=== PATIENT | female | born 1980 | race African-American/Black ===

== ENCOUNTER 2019-03-13 02:33 | Emergency (ER) | payer MEDICAID ==
[~2019-03-13] VITALS: Ht 175.3 cm; Wt 126.6 kg
[2019-03-13 03:58] VITALS: BP 133/80
[2019-03-13] MEDS ORDERED: DexAMETHasone SOD PHOS 10MG/1ML VIAL INJ IM ONE (04:00)
[2019-03-13] MEDS ORDERED: HYDROcodone-ACET 5/325MG TAB PO ONE (04:30)
== END 2019-03-13 04:37 | disposition home or self-care (01) ==
LOC: ER 02:35
DX: B88.9 Infestation, unspecified (principal); F17.210 Nicotine dependence, cigarettes, uncomplicated
CPT/HCPCS: 96372; 99283; J1100

== ENCOUNTER 2021-12-10 13:51 | Emergency (ER) | payer MEDICAID ==
[~2021-12-10] VITALS: Ht 175.3 cm; Wt 131.5 kg
[2021-12-10 15:04] VITALS: BP 95/60
[2021-12-10 15:45] LABS: Urine Bacteria FEW /hpf (None Seen); Urine Blood Negative /uL (Negative); Urine Specific Gravity 1.021 (1.001-1.035); Urine WBC 2 /hpf (0 - 5)
[2021-12-10 15:47] LABS: Basophils # (auto) 0 10 ^3/uL (0-0.2); Basophils % (auto) 0.4 % (0.0-2.0); Eosinophils # (auto) 0.2 10 ^3/uL (0-0.8); Hemoglobin 12.2 g/dL (12.2-16.2); Monocytes # (auto) 0.4 10 ^3/uL (0-1.3); Nucleated Red Blood Cells % 0.1 %
[2021-12-10 15:49] LABS: Eosinophils % (auto) 2.4 % (0.0-7.0); Hematocrit 36.2 % (36.0-46.0); Lymphocytes # (auto) 1.3 10 ^3/uL (0.4-5.4); Lymphocytes % (auto) 14.2 % (10.0-50.0); Mean Corpuscular Hgb Conc. 33.6 g/dL (32.0-36.0); Mean Corpuscular Volume 80.2 fL (80.0-100.0); Monocytes % (auto) 4.8 % (0.0-12.0); Neutrophils # (auto) 7.3 10 ^3/uL (1.6-8.6); Neutrophils % (auto) 78.2 % (37.0-80.0); Red Blood Cells 4.52 10^6/uL (4.0-5.20); White Blood Cell 9.3 10^3/uL (4.4-10.8)
[2021-12-10 15:56] LABS: BUN/Creatinine Ratio 11.3; Calcium 8.9 mg/dL (8.5-10.1); Potassium 3.7 mmol/L (3.5-5.1)
[2021-12-10] MEDS ORDERED: MECLIZINE HCL 25 MG TAB PO ONE (16:30)
[2021-12-10] MEDS ORDERED: CIPRSUS OT (16:31)
[2021-12-10] MEDS ORDERED: MECL1TAB42 PO (16:31)
== END 2021-12-10 16:36 | disposition home or self-care (01) ==
LOC: ER 13:51
DX: R42 Dizziness and giddiness (principal); H60.92 Unspecified otitis externa, left ear; F17.210 Nicotine dependence, cigarettes, uncomplicated; W22.8XXA Striking against or struck by other objects, initial encounter; Y93.01 Activity, walking, marching and hiking; Y92.89 Other specified places as the place of occurrence of the external cause; Y99.8 Other external cause status
CPT/HCPCS: 36415; 70450; 80048; 81001; 84484; 85025; 93005; 99285; J8597

== ENCOUNTER 2021-12-13 17:05 | Emergency (ER) | payer MEDICAID ==
[~2021-12-13] VITALS: Ht 175.3 cm; Wt 131.5 kg
[~2021-12-13 17:05] MED LIST: CIPRSUS OT; MECL1TAB42 PO
[2021-12-13 19:01] LABS: Albumin 3.7 g/dL (3.4-5.0); Calcium 9.1 mg/dL (8.5-10.1); Potassium 3.9 mmol/L (3.5-5.1)
[2021-12-13 19:04] LABS: BUN/Creatinine Ratio 6.5; Bilirubin, Total 0.3 mg/dL (0.2-1.0); Total Protein 7.9 g/dL (6.4-8.2)
[2021-12-13 19:04] LABS: Urine Bacteria FEW /hpf (None Seen); Urine Blood Negative /uL (Negative); Urine Specific Gravity 1.008 (1.001-1.035); Urine WBC 3 /hpf (0 - 5)
[2021-12-13 19:09] LABS: Basophils # (auto) 0 10 ^3/uL (0-0.2); Basophils % (auto) 0.4 % (0.0-2.0); Lymphocytes # (auto) 1.6 10 ^3/uL (0.4-5.4)
[2021-12-13 19:11] LABS: Eosinophils # (auto) 0.2 10 ^3/uL (0-0.8); Eosinophils % (auto) 1.9 % (0.0-7.0); Hematocrit 37.6 % (36.0-46.0); Hemoglobin 12.8 g/dL (12.2-16.2); Mean Corpuscular Hemoglobin 27.2 pg (28.0-32.0); Mean Corpuscular Hgb Conc. 33.9 g/dL (32.0-36.0); Mean Corpuscular Volume 80.1 fL (80.0-100.0); Monocytes # (auto) 0.5 10 ^3/uL (0-1.3); Monocytes % (auto) 4.6 % (0.0-12.0); Neutrophils # (auto) 7.8 10 ^3/uL (1.6-8.6); Neutrophils % (auto) 77.1 % (37.0-80.0); Red Blood Cells 4.69 10^6/uL (4.0-5.20); Red Cell Distribution Width 15.3 % (11.8-14.3); White Blood Cell 10.1 10^3/uL (4.4-10.8)
[2021-12-13] MEDS ORDERED: diazePAM 5 MG TAB PO ONE (20:00)
[2021-12-14] MEDS ORDERED: diazePAM 5 MG TAB PO ONE
[2021-12-14 02:00] VITALS: BP 129/93
[2021-12-14] MEDS ORDERED: DIAZ5TAB PO (02:57)
== END 2021-12-14 03:00 | disposition home or self-care (01) ==
LOC: ER 17:05
DX: R42 Dizziness and giddiness (principal); F17.210 Nicotine dependence, cigarettes, uncomplicated
CPT/HCPCS: 36415; 70450; 80053; 81001; 81025; 84484; 85025; 93005

== ENCOUNTER 2025-04-21 10:03 | Emergency (ER) | payer MEDICAID ==
[~2025-04-21] VITALS: Ht 177.8 cm; Wt 120.4 kg
[~2025-04-21 10:03] MED LIST changes: +DIAZ-681 PO
[2025-04-21] MEDS ORDERED: BENZ100C97 PO (11:24)
[2025-04-21] MEDS ORDERED: LORA-1126 PO (11:24)
[2025-04-21] MEDS ORDERED: FLUT1SPR5 (11:24)
[2025-04-21] MEDS ORDERED: PROM1SOL4 PO (11:24)
[2025-04-21] MEDS ORDERED: IBUP1TAB5 PO (11:24)
[2025-04-21] MEDS ORDERED: AUG875T PO (11:24)
[2025-04-21 11:38] VITALS: BP 118/80; PULSE 74; RESP 18; TEMP 98; O2SAT 100
--- NOTE | 2025-04-21 11:47 | ED.PDOC ---
SOB-HPI HPI Comments This is a 44 year old female presenting to the ED with chief complaint of flu- like symptoms. Patient reports that she has been experiencing body aches with associated cough, congestion, headaches, back pain, dizziness, and fever since Sunday. Patient relays that her fever broke on Sunday, but her other symptoms have persisted despite use of Tylenol and Motrin. Patient denies any abdominal pain, N/V/D, dysuria, or hematuria. Chief Complaint: Flu like Time Seen by MD: 11:46 Primary Care Provider: OLENA Reviewed notes: Nurses Notes, Medications, Allergies Information Source: Patient Mode of Arrival: Ambulatory Severity: Moderate Timing: Days Duration: Since onset Context: At Rest PE Risk Factors: None History of: None Prehospital treatment: None Modifying Factors: Nothing Associated Signs and Symptoms: Fever, Cough, Nasal Congestion If cough with SOB: Non-Productive Past Medical History PAST MEDICAL HISTORY: Denies Surgical History: Denies all surgeries SWE[employer]AND [employer]UMMER History: No Pertinent SWEATBAND [employer]UMMER History Family History Family History: Unobtainable Social History Smoker: Cigarettes, Less Than 1 Pack/Day Alcohol: Occasionally Drugs: Denies Drug Use Lives In: Home Constitutional: reports: fever, others (Body aches); denies: chills, diaphoresis, fatigue, malaise, sweats, weakness EENTM: reports: nose congestion; denies: blurred vision, double vision, ear bleeding, ear discharge, ear drainage, ear pain, ear ringing, eye pain, eye redness, hearing loss, mouth pain, mouth swelling, nasal discharge, nose bleeding, nose pain, photophobia, tearing, throat pain, throat swelling, voice changes, others Respiratory: reports: cough; denies: hemoptysis, orthopnea, SOB at rest, shortness of breath, SOB with excertion, stridor, wheezing, others Cardiovascular: denies: chest pain, dizzy spells, diaphoresis, Dyspnea on exertion, edema, irregular heart beat, left arm pain, lightheadedness, palpitations, PND, syncope, others Gastrointestinal: denies: abdomen distended, abdominal pain, blood streaked bowels, constipated, diarrhea, dysphagia, difficulty swallowing, hematemesis, melena, nausea, poor appetite, poor fluid intake, rectal bleeding, rectal pain, vomiting, others Genitourinary: denies: abnormal vagina bleeding, burning, dyspareunia, dysuria, flank pain, frequency, hematuria, incontinence, pain, , vagina discharge, urgency, others Neurological: reports: dizziness, headache; denies: fainting, left sided numbness, left sided weakness, numbness, paresthesia, pre-existing deficit, right sided numbness, right sided weakness, seizure, speech problems, tingling, tremors, weakness, others Musculoskeletal: reports: back pain; denies: gout, joint pain, joint swelling, muscle pain, muscle stiffness, neck pain, others Integumetry: denies: bruises, change in color, change in hair/nails, dryness, laceration, lesions, lumps, rash, wounds, others Allergic/Immunocompromised: denies: Difficulty Healing, Frequent Infections, Hives, Itching, others Hematologic/Lymphatic: denies: anemia, blood clots, easy bleeding, easy bruising, swollen glands, others Endocrine: denies: excessive hunger, excessive sweating, excessive thirst, excessive urination, flushing, intolerance to cold, intolerance to heat, unexplained weight gain, unexplained weight loss, others Psychiatric: denies: anxiety, bipolar disorder, depression, hopeless, panic disorder, schizophrenia, sleepless, suicidal, others All Other Systems: Reviewed and Negative Physical Exam General Appearance: No Apparent Distress, Normal HEENT: Normal ENT Inspection, Pharynx Normal, TM Abnormal (L) (Left ear canal erytheamtous with intact TM.), TM Abnormal (R) (Right noticeable TM effusion, hearing intact.) Neck: Full Range of Motion, Non-Tender, Normal, Normal Inspection Respiratory: Chest Non-Tender, Lungs Clear, No Accessory Muscle Use, No Respiratory Distress, Normal Breath Sounds Cardiovascular: No Edema, No JVD, No Murmur, No Gallop, Normal Peripheral Pulses, Regular Rate/Rhythm Breast Exam: Deferred Gastrointestinal: No Organomegaly, Non Tender, No Pulsatile Mass, Normal Bowel Sounds, Soft Genitalia: Deferred Pelvic: Deferred Rectal: Deferred Extremities: No calf tenderness, Normal capillary refill, Normal inspection, Normal range of motion, Non-tender, No pedal edema Musculoskeletal : Apperance: Normal Neurologic: Alert, equipment operator II-XII nml as Tested, No Motor Deficits, Normal Affect, Normal Mood, No Sensory Deficits Cerebellar Function: Normal Reflexes: Normal Skin: Dry, Normal Color, Warm Lymphatic: No Adenopathy Was a procedure done? Was a procedure done?: No Differential Dx Differential Diagnosis: Bronchitis, Otitis Media, URI X-Ray, Labs, Meds, VS Vital Signs Date Time Temp Pulse Resp B/P (MAP) Pulse Ox O2 Delivery O2 Flow Rate FiO2 04/21/25 11:37 74 18 100 Room Air 04/21/25 10:04 97.2 72 20 114/81 100 97.2 X-Ray, Labs, Meds, VS Comment This is a 44 year old female presenting to the ED with chief complaint of flu- like illness. Patient arrives alert and oriented, ABC's intact, afebrile, vital signs stable, saturating well in room air Additional MDM Review of External, Non-ED records: External records reviewed. Discussion with independent historian (EMS, family) history obtained from the patient/parents (if applicable) at bedside Chronic conditions affecting care: None Social determinants of health affecting care: None Consideration of admission (observation or admission): I considered escalation of care to admission for this patient, however given the reassuring workup, the patient is safe for outpatient management. Time of 1ST Reevaluation: 11:43 Reevaluation 1ST: Unchanged Patient Education/Counseling: Diagnosis, Treatment Family Education/Counseling: No Family Present SEPSIS Sepsis Screen Date sepsis recognized/suspect: Apr 21, 2025 Time Sepsis recognized/suspect: 1006 Recent Procedure: No On Antibiotic Therapy: No Respiratory Rate >20: No Heart Rate >90: No Temp<36 C (96.8 F) or >38.3 C: No SBP <90 or MAP <65 mmHG: No New Acute Mental Status Change: No Is the patient on CPAP, BIPAP,: No Vital Signs Date Time Temp Pulse Resp B/P (MAP) Pulse Ox O2 Delivery O2 Flow Rate FiO2 04/21/25 11:37 74 18 100 Room Air 04/21/25 10:04 97.2 72 20 114/81 100 97.2 Departure 1 Departure Time of Disposition: 11:45 Impression: Primary Impression: Viral syndrome Disposition: 01 HOME / SELF CARE / HOMELESS Condition: Stable Additional Instructions: Discharge Note: Continue on your medications. Do not drive when taking narcotics. Drink plenty of fluids. Follow up with your primary Dr. Take your prescriptions as ordered. If your condition becomes worse call and follow up with your primary DrDaniel for instructions or return to the ER if needed. Thank you for visiting [facility] [place]. e-Prescriptions Ibuprofen Micronized (Ibuprofen) 600 Mg Tab 600 MG PO Q8HP PRN for 10 Days, #30 TAB 0 Refills Prov: EDE REIS NP 04/21/25 Loratadine (Loratadine) 10 Mg Tab 10 MG PO DAILY for 10 Days, #10 TAB 0 Refills Prov: EDE REIS NP 04/21/25 Promethazine-Dm (Promethazine Dm 6.25-15 mg/5Ml) 1 Marilin Marilin 5 ML PO TID for 10 Days, #150 ML 0 Refills Prov: EDE REIS NP 04/21/25 Benzonatate (Benzonatate) 100 Mg Cap 1 CAP PO TID for 10 Days, #30 CAP 0 Refills Prov: EDE REIS NP 04/21/25 Fluticasone Propionate (Nasal) (Flonase Allergy Relief) 50 Mcg/Act Spr 1 SPR NA DAILY for 10 Days, #1 BOTTLE 0 Refills Prov: EDE REIS NP 04/21/25 Amoxicillin & Pot Clavulanate (AUGMENTIN TABLET) 875 Mg Tb 875 MG PO BID for 5 Days, #10 TAB 0 Refills Prov: EDE REIS NP 04/21/25 Discharged With: Self Critical Care Note Critical Care Time?: No Stability Stability form required: No Heart Score Heart Score: Heart Score Response (Comments) Value History N/A 0 EKG N/A 0 Age N/A 0 Risk Factors N/A 0 Troponin N/A 0 Total 0 I personally scribed for EDE REIS NP ([email or web address]) on 04/21/25 at 11:47. Electronically submitted by Ciro Fuentes ([email or web address]). EDE REIS NP Apr 21, 2025 11:47
== END 2025-04-21 11:39 | disposition home or self-care (01) ==
LOC: ER 10:03
DX: B34.9 Viral infection, unspecified (principal); F17.210 Nicotine dependence, cigarettes, uncomplicated